=== PATIENT | male | born 1945 | race Caucasian/White ===

== ENCOUNTER → 2016-12-02 | Outpatient (CLI) | payer OTHER | LOC: FIMAGING 08:47 | PROVIDERS: ATTEND Internal Medicine Hematology & Oncology | DX: Z12.89 Encounter for screening for malignant neoplasm of other sites (principal); R93.0 Abnormal findings on diagnostic imaging of skull and head, not elsewhere classified; S22.31XD Fracture of one rib, right side, subsequent encounter for fracture with routine healing; C34.90 Malignant neoplasm of unspecified part of unspecified bronchus or lung | CPT/HCPCS: 70250; 71111; 78306; A9503 ==

== ENCOUNTER → 2017-06-09 | Outpatient (CLI) | payer OTHER, MEDICAID ==
[~2017-06-09] MED LIST: GADOBUTROL 10 ML VIAL IVP ONE
== END ==
LOC: FIMAGING 19:38
PROVIDERS: ATTEND Internal Medicine Hematology & Oncology
DX: R51 Headache (principal); G31.9 Degenerative disease of nervous system, unspecified; C34.31 Malignant neoplasm of lower lobe, right bronchus or lung
CPT/HCPCS: 70553; A9585